=== PATIENT | female | born 1995 | race American Indian/Alaskan Native ===

== ENCOUNTER 2017-03-25 03:03 | Emergency (ER) | payer SELFPAY ==
[2017-03-25] MEDS ORDERED: MOTRIN PO ONE (10:27)
[2017-03-25] MEDS ORDERED: ULTRAM PO ONE (10:27)
--- NOTE | 2017-03-25 10:27 | Emergency Department Report ---
Blank Doc - Documentation Documentation: Medical screening exam: Patient is a 21-year-old [place] female who is presenting with right calf pain for 3 days. Patient denies any trauma. Patient does smoke and is on control. Patient will have ultrasound done and oral pain meds and will be passed off to the [facility]
--- NOTE | 2017-03-25 11:52 | Emergency Department Report ---
ED Extremity Problem HPI - General Chief complaint: Extremity Injury, Lower Stated complaint: RIGHT LEG PAIN Time Seen by Provider: 03/25/17 10:26 Source: patient Mode of arrival: Ambulatory Limitations: No Limitations - History of Present Illness Initial comments: 21-year-old -[place] female with a past medical history of HIV comes in for complaint of right calf pain for 3 days. Patient reports that the pain is stabbing and tightness. She reports that the area is swollen she denies any redness denies any open wounds to the area. Patient denies any recent travel she does report that she takes control and smokes. Patient reports that is painful to walk. She denies any chest pain denies any shortness of breath, denies any fever denies any chills no nausea no vomiting. MD Complaint: extremity pain Location: right, lower extremity History of Same: No -: Yes arthralgia Radiation: none Severity scale (0 -10): 8 Quality: stabbing Consistency: constant Improves with: nothing Worsens with: nothing Associated Symptoms: denies: chest pain, shortness of breath, fever - Related Data Previous Rx's Medication Instructions Recorded Last Taken Type Apixaban [Eliquis] 5 mg PO BID #80 tablet 03/25/17 Unknown Rx HYDROcodone/APAP 7.5-325 [[place] 1 each PO Q8HR PRN #12 tablet 03/25/17 Unknown Rx 7.5/325] Allergies Allergy/AdvReac Type Severity Reaction Status Date / Time No Known Allergies Allergy Verified 03/25/17 03:29 ED Review of Systems ROS: Stated complaint: RIGHT LEG PAIN Other details as noted in HPI Constitutional: denies: chills, fever Eyes: denies: eye pain, eye discharge, vision change ENT: denies: ear pain, throat pain Respiratory: denies: cough, shortness of breath, wheezing Cardiovascular: denies: chest pain, palpitations Endocrine: no symptoms reported Gastrointestinal: denies: abdominal pain, nausea, diarrhea Genitourinary: denies: urgency, dysuria, discharge Musculoskeletal: myalgia Skin: denies: rash, lesions Neurological: denies: headache, weakness, paresthesias Psychiatric: denies: anxiety, depression Hematological/Lymphatic: denies: easy bleeding, easy bruising ED Past Medical Hx - Past Medical History Previous Medical History?: Yes Hx HIV: Yes - Surgical History Past Surgical History?: No - Social History Smoking Status: Current Every Day Smoker Substance Use Type: None - Medications Home Medications: Home Medications Medication Instructions Recorded Confirmed Last Taken Type Apixaban [Eliquis] 5 mg PO BID #80 tablet 03/25/17 Unknown Rx HYDROcodone/APAP 7.5-325 [[place] 1 each PO Q8HR PRN #12 tablet 03/25/17 Unknown Rx 7.5/325] ED Physical Exam - General Limitations: No Limitations General appearance: alert, in no apparent distress - Head Head exam: Present: atraumatic, normocephalic - Eye Eye exam: Present: normal appearance - ENT ENT exam: Present: mucous membranes moist - Neck Neck exam: Present: normal inspection - Respiratory Respiratory exam: Present: normal lung sounds bilaterally. Absent: respiratory distress - Cardiovascular Cardiovascular Exam: Present: regular rate, normal rhythm. Absent: systolic murmur, diastolic murmur, rubs, gallop - GI/Abdominal GI/Abdominal exam: Present: soft, normal bowel sounds - Extremities Exam Extremities exam: Present: tenderness, calf tenderness - Expanded Lower Extremity Exam Right Lower Leg exam: Present: tenderness, swelling Ankle exam: Present: normal inspection Foot/Toe exam: Present: normal inspection Neuro vascular tendon exam: Present: no vascular compromise Gait: Positive: not tested/not observed - Neurological Exam Neurological exam: Present: alert, oriented X3 - Psychiatric Psychiatric exam: Present: normal affect, normal mood - Skin Skin exam: Present: warm, dry, intact, normal color. Absent: rash ED Course Vital Signs 03/25/17 03:24 Temperature 99.0 F Pulse Rate 85 Respiratory 18 Rate Blood Pressure 124/80 O2 Sat by Pulse 96 Oximetry ED Medical Decision Making - Radiology Data Radiology results: report reviewed, image reviewed - Medical Decision Making Patient has been evaluated by this provider as well as Dr. Ng. Dr. Ng receive a phone call that studies for Doppler came back positive for distal DVT of the right lower leg. Discussed with patient that we will need to place her on anticoagulant medication which would help disseminate the clot. Critical care attestation.: If time is entered above; I have spent that time in minutes in the direct care of this critically ill patient, excluding procedure time. ED Disposition Clinical Impression: DVT (deep venous thrombosis) Qualifiers: DVT location: lower extremity Affected thrombotic vein of extremity: unspecified lower extremity distal vein Chronicity: acute Laterality: right Qualified Code(s): I82.4Z1 - Acute embolism and thrombosis of unspecified deep veins of right distal lower extremity Disposition: DC- TO HOME OR SELFCARE Is pt being admited?: No Does the pt Need Aspirin: No Condition: Stable Instructions: Deep Venous Thrombosis (ED) Additional Instructions: Please take Eliquis as prescribed. Please take pain medication as prescribed. Do not operate heavy machinery do not drink alcohol do not drive while on pain medications. It is very very important to follow-up with vascular clinic before finishing your medications. Return to the emergency room if he develops shortness of breath chest pain worsening of your leg swelling. Prescriptions: Apixaban [Eliquis] 5 mg PO BID #80 tablet HYDROcodone/APAP 7.5-325 [[place] 7.5/325] 1 each PO Q8HR PRN #12 tablet PRN Reason: Pain Referrals: PRIMARY CARE, [Primary Care Provider] - 3-5 Days GIOVANNY FU MD [Staff Physician] - 3-5 Days
[2017-03-25 12:33] VITALS: BP 118/71
--- NOTE | 2017-03-26 13:15 | Vascular Lab Report ---
Right Lower Extremity Venous Duplex Study: Reason for Exam: Pain and swelling of the right lower extremity. Comments on the Right: Acute deep venous thrombosis seen in the popliteal and tibial veins as well as in the adjacent gastrocnemius vein. The remaining veins visualized are freely compressible without evidence of internal echogenicity. Spontaneous and phasic flow is present proximally. Comments on the Left: A limited duplex study was done of the proximal veins of the left lower extremity. All veins visualized are freely compressible without evidence of internal echogenicity. Flow is spontaneous and phasic throughout. No evidence of acute or chronic thrombus is seen in any of the vessels visualized. Impression: Acute deep venous thrombosis of the right lower extremity involving the popliteal and tibial veins and and adjacent gastrocnemius vein.
== END 2017-03-25 12:33 | disposition home or self-care (01) ==
LOC: ED 03:03
DX: I82.4Z1 Acute embolism and thrombosis of unspecified deep veins of right distal lower extremity (principal); F17.200 Nicotine dependence, unspecified, uncomplicated; Z21 Asymptomatic human immunodeficiency virus [HIV] infection status
CPT/HCPCS: 99283